=== PATIENT | male | born 1980 | race Caucasian/White ===

== ENCOUNTER 2022-03-27 23:26 | Inpatient (IN) | payer OTHER ==
[2022-03-28 00:06] VITALS: BMI 18.1
[2022-03-28] MEDS ORDERED: ONDANSETRON *ODT* 4 MG TABLET SL PRN (00:35)
[2022-03-28] MEDS ORDERED: IBUPROFEN 600 MG TABLET (FP) PO PRN (00:35)
[2022-03-28] MEDS ORDERED: DICYCLOMINE HCL 10 MG CAPSULE PO PRN (00:35)
[2022-03-28] MEDS ORDERED: LOPERAMIDE HCL 2 MG CAPSULE PO PRN (00:35)
[2022-03-28] MEDS ORDERED: BISMUTH SUBSALICYLATE 524 MG/30 ML PO PRN (00:35)
[2022-03-28] MEDS ORDERED: MAG HYDROX/AL HYDROX/SIMETH 30 ML UNIT-DOSE CUP PO PRN (00:35)
[2022-03-28] MEDS ORDERED: MAGNESIUM HYDROX 2400MG/30ML ORAL SUSPENSION 30 ML CUP PO PRN (00:35)
[2022-03-28] MEDS ORDERED: ACETAMINOPHEN 325 MG TABLET (FP) PO PRN ×3 (00:35→00:43)
[2022-03-28] MEDS ORDERED: POLYETHYLENE GLYCOL (HEALTHYLAX) 3350 17 GM PACKET PO PRN (00:35)
[2022-03-28] MEDS ORDERED: BENZOCAINE/MENTHOL (CHLORASEPTIC ) LOZENGE MM PRN (00:35)
[2022-03-28] MEDS ORDERED: guaiFENesin 200 MG/10 ML 10 ML UNIT-DOSE CUPS PO PRN (00:35)
[2022-03-28] MEDS ORDERED: P-EPHED 60MG/TRIPROLIDI 2.5MG TABLET PO PRN (00:35)
[2022-03-28] MEDS ORDERED: diazePAM 5 MG TABLET PO PRN (00:38)
[2022-03-28] MEDS ORDERED: diazePAM 5 MG TABLET PO ONE (00:38)
[2022-03-28] MEDS ORDERED: chlordiazePOXIDE HCL 25 MG CAPSULE PO PRN (00:47)
[2022-03-28] MEDS ORDERED: chlordiazePOXIDE HCL 25 MG CAPSULE PO ONE (00:47)
[2022-03-28] MEDS: levETIRAcetam 500 MG TABLET (FP) PO SCH ×3 (01:31→22:37)
[2022-03-28] MEDS ORDERED: chlordiazePOXIDE HCL 25 MG CAPSULE ONE ×3 (01:33→11:42)
[2022-03-28] MEDS ORDERED: diazePAM 5 MG TABLET PO SCH (05:00)
[2022-03-28] MEDS: chlordiazePOXIDE HCL 25 MG CAPSULE PO SCH ×4 (06:25→22:37)
[2022-03-28] MEDS: PRENATAL VITAMINS W/ FOLIC ACID TABLET (FP) PO SCH (11:00)
[2022-03-28] MEDS ORDERED: levETIRAcetam 500 MG TABLET (FP) PO ONE (12:00)
[2022-03-28] MEDS: LIDOCAINE 5% TOPICAL PATCH TP SCH (12:30)
[2022-03-28] MEDS: IBUPROFEN 400 MG TABLET (FP) PO PRN (17:37)
[2022-03-28] MEDS: hydrOXYzine PAMOATE 25 MG CAPSULE (FP) PO PRN (17:39)
[2022-03-28] MEDS: THIAMINE HCL 100 MG TABLET (FP) PO SCH (22:37)
[2022-03-28] MEDS: MELATONIN 5 MG TABLETS PO SCH (22:37)
[2022-03-28] MEDS: LIDOCAINE PATCH REMOVAL MC SCH (22:38)
[2022-03-28] MEDS: METHOCARBAMOL 500 MG TABLET PO PRN (22:39)
[2022-03-29] MEDS ORDERED: diazePAM 5 MG TABLET PO SCH (06:00)
[2022-03-29] MEDS: chlordiazePOXIDE HCL 25 MG CAPSULE PO SCH ×4 (06:23→22:14)
[2022-03-29] MEDS: PRENATAL VITAMINS W/ FOLIC ACID TABLET (FP) PO SCH (10:00)
[2022-03-29] MEDS: LIDOCAINE 5% TOPICAL PATCH TP SCH (10:00)
[2022-03-29] MEDS: levETIRAcetam 500 MG TABLET (FP) PO SCH ×2 (10:00→22:14)
[2022-03-29] MEDS: METHOCARBAMOL 500 MG TABLET PO PRN ×2 (10:03→18:51)
[2022-03-29] MEDS: hydrOXYzine PAMOATE 25 MG CAPSULE (FP) PO PRN (18:51)
[2022-03-29] MEDS: MELATONIN 5 MG TABLETS PO SCH (22:14)
[2022-03-29] MEDS: THIAMINE HCL 100 MG TABLET (FP) PO SCH (22:14)
[2022-03-29] MEDS: IBUPROFEN 400 MG TABLET (FP) PO PRN (22:15)
[2022-03-29] MEDS: LIDOCAINE PATCH REMOVAL MC SCH (22:18)
[2022-03-30] MEDS ORDERED: chlordiazePOXIDE HCL 10 MG CAPSULE PO PRN
[2022-03-30] MEDS: chlordiazePOXIDE HCL 10 MG CAPSULE PO SCH ×4 (05:33→22:36)
[2022-03-30] MEDS: ACETAMINOPHEN 325 MG TABLET (FP) PO PRN ×2 (05:34→22:34)
[2022-03-30] MEDS ORDERED: diazePAM 5 MG TABLET PO SCH (06:00)
[2022-03-30] MEDS: LIDOCAINE 5% TOPICAL PATCH TP SCH (10:19)
[2022-03-30] MEDS: PRENATAL VITAMINS W/ FOLIC ACID TABLET (FP) PO SCH (10:19)
[2022-03-30] MEDS: levETIRAcetam 500 MG TABLET (FP) PO SCH ×2 (10:19→22:31)
[2022-03-30] MEDS: METHOCARBAMOL 500 MG TABLET PO PRN (10:19)
[2022-03-30] MEDS: IBUPROFEN 400 MG TABLET (FP) PO PRN (17:02)
[2022-03-30] MEDS: MELATONIN 5 MG TABLETS PO SCH (22:30)
[2022-03-30] MEDS: THIAMINE HCL 100 MG TABLET (FP) PO SCH (22:30)
[2022-03-30] MEDS: LIDOCAINE PATCH REMOVAL MC SCH (22:33)
[2022-03-31] MEDS: METHOCARBAMOL 500 MG TABLET PO PRN ×3 (01:12→22:46)
[2022-03-31] MEDS: ACETAMINOPHEN 325 MG TABLET (FP) PO PRN (05:43)
[2022-03-31] MEDS: chlordiazePOXIDE HCL 10 MG CAPSULE PO SCH ×2 (05:47→17:49)
[2022-03-31] MEDS ORDERED: diazePAM 5 MG TABLET PO ONE (06:00)
[2022-03-31] MEDS ORDERED: IBUPROFEN 400 MG TABLET (FP) PO PRN (10:04)
[2022-03-31] MEDS: levETIRAcetam 500 MG TABLET (FP) PO SCH ×2 (10:30→22:46)
[2022-03-31] MEDS: LIDOCAINE 5% TOPICAL PATCH TP SCH (10:30)
[2022-03-31] MEDS: PRENATAL VITAMINS W/ FOLIC ACID TABLET (FP) PO SCH (10:31)
[2022-03-31] MEDS: NICOTINE 10 MG CARTRIDGE (INHALER) IH PRN ×2 (10:33→22:44)
[2022-03-31] MEDS: hydrOXYzine PAMOATE 25 MG CAPSULE (FP) PO PRN ×2 (10:35→22:46)
[2022-03-31] MEDS: MELATONIN 5 MG TABLETS PO SCH (22:46)
[2022-03-31] MEDS: THIAMINE HCL 100 MG TABLET (FP) PO SCH (22:46)
[2022-03-31] MEDS: LIDOCAINE PATCH REMOVAL MC SCH (22:47)
[2022-04-01] MEDS ORDERED: chlordiazePOXIDE HCL 10 MG CAPSULE PO ONE (05:00)
[2022-04-01] MEDS: METHOCARBAMOL 500 MG TABLET PO PRN (05:49)
[2022-04-01] MEDS: ACETAMINOPHEN 325 MG TABLET (FP) PO PRN (05:49)
[2022-04-01] MEDS: levETIRAcetam 500 MG TABLET (FP) PO SCH (10:09)
[2022-04-01] MEDS: LIDOCAINE 5% TOPICAL PATCH TP SCH (10:09)
[2022-04-01] MEDS: PRENATAL VITAMINS W/ FOLIC ACID TABLET (FP) PO SCH (10:10)
[2022-04-01 13:10] VITALS: BP 107/65; PULSE 105; RESP 20; TEMP 98.1
== END 2022-04-01 13:01 | disposition other institution (70) | DRG 775 ==
LOC: YASAS 23:26 → Y6N 03-28 10:53
PROVIDERS: ADMIT Allergy & Immunology; ATTEND Surgery
PROC: HZ2ZZZZ Detoxification Services for Substance Abuse Treatment (ICD-10-PCS; principal; 2022-03-28)
DX: F10.230 Alcohol dependence with withdrawal, uncomplicated (principal); F17.210 Nicotine dependence, cigarettes, uncomplicated; F10.282 Alcohol dependence with alcohol-induced sleep disorder; F10.24 Alcohol dependence with alcohol-induced mood disorder; F32.A Depression, unspecified; D69.6 Thrombocytopenia, unspecified; D64.9 Anemia, unspecified; Z62.810 Personal history of physical and sexual abuse in childhood; Z85.028 Personal history of other malignant neoplasm of stomach; Z90.3 Acquired absence of stomach [part of]; Z86.19 Personal history of other infectious and parasitic diseases; S22.39XD Fracture of one rib, unspecified side, subsequent encounter for fracture with routine healing; S62.616D Displaced fracture of proximal phalanx of right little finger, subsequent encounter for fracture with routine healing; Y04.0XXD Assault by unarmed brawl or fight, subsequent encounter
CPT/HCPCS: 36415; 70450-TC; 71250-TC; 72125-TC; 73130-TC-LT-FY; 73130-TC-RT-FY; 80053; 82140; 83690; 85025; 85610; 85730; 86780; 86850; 86900; 86901; C9803-CS; U0003; U0005

== ENCOUNTER 2022-04-01 13:12 | Inpatient (IN) | payer OTHER ==
[2022-04-01] MEDS ORDERED: MAGNESIUM HYDROX 2400MG/30ML ORAL SUSPENSION 30 ML CUP PO PRN (16:01)
[2022-04-01] MEDS ORDERED: BENZOCAINE/MENTHOL (CHLORASEPTIC ) LOZENGE MM PRN (16:01)
[2022-04-01] MEDS ORDERED: POLYETHYLENE GLYCOL (HEALTHYLAX) 3350 17 GM PACKET PO PRN (16:01)
[2022-04-01] MEDS ORDERED: MAG HYDROX/AL HYDROX/SIMETH 30 ML UNIT-DOSE CUP PO PRN (16:01)
[2022-04-01] MEDS ORDERED: NICOTINE 7 MG/24 HOURS TOPICAL PATCH TD PRN (16:01)
[2022-04-01] MEDS ORDERED: ACETAMINOPHEN 325 MG TABLET (FP) PO PRN (16:01)
[2022-04-01] MEDS ORDERED: NICOTINE POLACRILEX 2 MG GUM BUC PRN (16:01)
[2022-04-01] MEDS ORDERED: guaiFENesin 200 MG/10 ML 10 ML UNIT-DOSE CUPS PO PRN (16:01)
[2022-04-01] MEDS ORDERED: LOPERAMIDE HCL 2 MG CAPSULE PO PRN (16:01)
[2022-04-01] MEDS ORDERED: P-EPHED 60MG/TRIPROLIDI 2.5MG TABLET PO PRN (16:01)
[2022-04-01] MEDS: IBUPROFEN 400 MG TABLET (FP) PO PRN (16:54)
[2022-04-01] MEDS: NICOTINE 10 MG CARTRIDGE (INHALER) IH PRN (21:20)
[2022-04-01] MEDS: BACLOFEN 10 MG TABLET (FP) PO PRN (21:21)
[2022-04-01] MEDS: THIAMINE HCL 100 MG TABLET (FP) PO SCH (21:21)
[2022-04-01] MEDS: hydrOXYzine PAMOATE 25 MG CAPSULE (FP) PO PRN (21:21)
[2022-04-01] MEDS: levETIRAcetam 500 MG TABLET (FP) PO SCH (21:21)
[2022-04-01] MEDS: MELATONIN 5 MG TABLETS PO SCH (21:22)
[2022-04-02] MEDS: IBUPROFEN 400 MG TABLET (FP) PO PRN ×2 (06:22→13:51)
[2022-04-02] MEDS: NICOTINE 10 MG CARTRIDGE (INHALER) IH PRN (06:23)
[2022-04-02] MEDS: levETIRAcetam 500 MG TABLET (FP) PO SCH ×2 (09:48→21:15)
[2022-04-02] MEDS: PRENATAL VITAMINS W/ FOLIC ACID TABLET (FP) PO SCH (09:48)
[2022-04-02] MEDS: BACLOFEN 10 MG TABLET (FP) PO PRN ×2 (09:48→21:16)
[2022-04-02] MEDS: hydrOXYzine PAMOATE 25 MG CAPSULE (FP) PO PRN (09:48)
[2022-04-02 12:48] LABS: HIV INTERPRETATION NEGATIVE (NEGATIVE)
[2022-04-02] MEDS: LIDOCAINE 5% TOPICAL PATCH TP SCH (15:55)
[2022-04-02] MEDS: MELATONIN 5 MG TABLETS PO SCH (21:15)
[2022-04-02] MEDS: THIAMINE HCL 100 MG TABLET (FP) PO SCH (21:15)
[2022-04-02] MEDS: LIDOCAINE PATCH REMOVAL MC SCH (21:17)
[2022-04-03] MEDS: NICOTINE 10 MG CARTRIDGE (INHALER) IH PRN ×3 (06:27→21:20)
[2022-04-03] MEDS: LIDOCAINE 5% TOPICAL PATCH TP SCH (09:50)
[2022-04-03] MEDS: levETIRAcetam 500 MG TABLET (FP) PO SCH ×2 (09:50→21:18)
[2022-04-03] MEDS: PRENATAL VITAMINS W/ FOLIC ACID TABLET (FP) PO SCH (09:51)
[2022-04-03] MEDS: IBUPROFEN 400 MG TABLET (FP) PO PRN ×2 (09:52→21:19)
[2022-04-03] MEDS: HYDROCORTISONE 1% TOPICAL OINT 30 GM TUBE TP PRN (11:54)
[2022-04-03] MEDS: THIAMINE HCL 100 MG TABLET (FP) PO SCH (21:17)
[2022-04-03] MEDS: LIDOCAINE PATCH REMOVAL MC SCH (21:18)
[2022-04-03] MEDS: MELATONIN 5 MG TABLETS PO SCH (21:18)
[2022-04-04] MEDS: NICOTINE 10 MG CARTRIDGE (INHALER) IH PRN (06:33)
[2022-04-04] MEDS: IBUPROFEN 400 MG TABLET (FP) PO PRN (06:34)
[2022-04-04] MEDS: levETIRAcetam 500 MG TABLET (FP) PO SCH ×2 (10:16→22:58)
[2022-04-04] MEDS: LIDOCAINE 5% TOPICAL PATCH TP SCH (10:16)
[2022-04-04] MEDS: PRENATAL VITAMINS W/ FOLIC ACID TABLET (FP) PO SCH (10:16)
[2022-04-04] MEDS: HYDROCORTISONE 1% TOPICAL OINT 30 GM TUBE TP PRN (10:18)
[2022-04-04 11:12] LABS: INR 1.03 (0.83-1.09); PROTHROMBIN TIME (PATIENT) 11.8 SEC (9.7-13.0)
[2022-04-04 11:13] LABS: EOS % 1.1 % (0-4.5); HEMATOCRIT 33.8 % (35.4-49); LYMPH % 28.3 % (8-40); MCH 33.7 pg (25.7-33.7); MCHC 32.6 g/dl (32.0-35.9); MEAN CELL VOLUME 103.4 fl (80-96); MEAN PLT VOLUME 7.2 fl (7.5-11.1); NEUT % 49.6 % (42.8-82.8); PLATELET COUNT 249 10^3/uL (134-434); RBC 3.27 M/mm3 (4.00-5.60); RDW 15.3 % (11.9-15.9); WHITE BLOOD COUNT 4.8 K/mm3 (4.0-10.0)
[2022-04-04 11:15] LABS: ALBUMIN 2.8 g/dl (3.4-5.0); CALCIUM 8.8 mg/dL (8.5-10.1)
[2022-04-04 11:18] LABS: CREATININE 0.6 mg/dL (0.55-1.3)
[2022-04-04 11:20] LABS: BILIRUBIN,TOTAL 0.4 mg/dL (0.2-1); TOT PROT 5.9 g/dl (6.4-8.2)
[2022-04-04 12:52] LABS: HIV INTERPRETATION NEGATIVE (NEGATIVE)
[2022-04-04 14:27] VITALS: BP 100/72; PULSE 111; RESP 18; TEMP 97.8
[2022-04-04] MEDS: MELATONIN 5 MG TABLETS PO SCH (22:58)
[2022-04-04] MEDS: LIDOCAINE PATCH REMOVAL MC SCH (22:58)
[2022-04-04] MEDS: THIAMINE HCL 100 MG TABLET (FP) PO SCH (22:59)
== END 2022-04-04 23:00 | disposition short-term general hospital (02) | DRG 772 ==
LOC: YASAS 13:12 → Y3E 13:14
PROVIDERS: ADMIT Allergy & Immunology; ATTEND Psychiatry & Neurology Pain Medicine
PROC: HZ42ZZZ Group Counseling for Substance Abuse Treatment, Cognitive-Behavioral (ICD-10-PCS; principal; 2022-04-01)
DX: F10.20 Alcohol dependence, uncomplicated (principal); F17.210 Nicotine dependence, cigarettes, uncomplicated; F10.282 Alcohol dependence with alcohol-induced sleep disorder; F10.24 Alcohol dependence with alcohol-induced mood disorder; F32.A Depression, unspecified; D50.0 Iron deficiency anemia secondary to blood loss (chronic); G40.909 Epilepsy, unspecified, not intractable, without status epilepticus; K62.5 Hemorrhage of anus and rectum; R60.0 Localized edema; Z85.028 Personal history of other malignant neoplasm of stomach; Z86.19 Personal history of other infectious and parasitic diseases; Z90.3 Acquired absence of stomach [part of]
CPT/HCPCS: 36415; 80053; 82140; 82607; 82728; 82746; 84466; 85025; 85610; 86803; 87389; 87491; 87591; 87661; J0475

== ENCOUNTER 2022-04-04 14:38 | Inpatient (IN) | payer OTHER ==
[2022-04-04 17:12] LABS: BASO % 1.3 % (0-2.0); EOS % 1.1 % (0-4.5); HEMATOCRIT 30.3 % (35.4-49); HEMOGLOBIN 9.6 GM/dL (11.7-16.9); LYMPH % 23.3 % (8-40); MCH 32.9 pg (25.7-33.7); MCHC 31.8 g/dl (32.0-35.9); MEAN CELL VOLUME 103.6 fl (80-96); MEAN PLT VOLUME 7.2 fl (7.5-11.1); MONO % 20.4 % (3.8-10.2); NEUT % 53.9 % (42.8-82.8); PLATELET COUNT 234 10^3/uL (134-434); RBC 2.92 M/mm3 (4.00-5.60); RDW 15.4 % (11.9-15.9); WHITE BLOOD COUNT 4.3 K/mm3 (4.0-10.0)
[2022-04-04 17:24] LABS: INR 1.05 (0.83-1.09); PROTHROMBIN TIME (PATIENT) 12.1 SEC (9.7-13.0)
[2022-04-04 17:26] LABS: ACTIVATED PTT 31.7 SECONDS (25.2-36.5)
[2022-04-04] MEDS ORDERED: PANTOPRAZOLE SODIUM 40 MG VIAL IVPUSH ONE ×2 (17:32→17:40)
[2022-04-04 17:36] LABS: CALCIUM 8.4 mg/dL (8.5-10.1)
[2022-04-04 17:37] LABS: ALBUMIN 2.8 g/dl (3.4-5.0); BLOOD UREA NITROGEN 9.2 mg/dL (7-18); MAGNESIUM 2.2 mg/dL (1.8-2.4)
[2022-04-04 17:40] LABS: CREATININE 0.7 mg/dL (0.55-1.3)
[2022-04-04 17:42] LABS: BILIRUBIN,TOTAL 0.3 mg/dL (0.2-1); TOT PROT 5.6 g/dl (6.4-8.2)
[2022-04-04 18:06] LABS: ANISOCYTOSIS 1+; MACROCYTOSIS 0
[2022-04-04 18:13] LABS: PLATELET ESTIMATE ADEQUATE
[2022-04-04] MEDS ORDERED: PANTOPRAZOLE SODIUM 40 MG VIAL ONE (20:54)
[2022-04-05] MEDS ORDERED: SODIUM CHLORIDE 1,000 ML IV SCH (00:45)
[2022-04-05 06:10] VITALS: RESP 18
[2022-04-05 09:44] LABS: HEMATOCRIT 30.3 % (35.4-49); MCH 33.6 pg (25.7-33.7); MEAN CELL VOLUME 101.9 fl (80-96); MEAN PLT VOLUME 7.2 fl (7.5-11.1); PLATELET COUNT 240 10^3/uL (134-434); RBC 2.98 M/mm3 (4.00-5.60); RDW 15.1 % (11.9-15.9); WHITE BLOOD COUNT 4.5 K/mm3 (4.0-10.0)
[2022-04-05] MEDS ORDERED: levETIRAcetam 500 MG TABLET (FP) PO SCH (10:00)
[2022-04-05] MEDS ORDERED: FLUoxetine HCL 20 MG CAPSULE PO SCH ×2 (10:00)
[2022-04-05] MEDS ORDERED: PANTOPRAZOLE SODIUM 40 MG VIAL IVPUSH SCH (10:00)
[2022-04-05 10:09] LABS: ALBUMIN 2.5 g/dl (3.4-5.0)
[2022-04-05 10:10] LABS: CALCIUM 8.2 mg/dL (8.5-10.1); MAGNESIUM 2.2 mg/dL (1.8-2.4)
[2022-04-05 10:12] LABS: CREATININE 0.6 mg/dL (0.55-1.3); PHOSPHOROUS 5.4 mg/dL (2.5-4.9)
[2022-04-05 10:14] LABS: BILIRUBIN,TOTAL 0.4 mg/dL (0.2-1); TOT PROT 5.3 g/dl (6.4-8.2)
[2022-04-05 10:29] LABS: ANISOCYTOSIS 1+; MACROCYTOSIS 2+; PLATELET ESTIMATE INCREASED
[2022-04-05] MEDS ORDERED: CYANOCOBALAMIN (VITAMIN B-12) 1000 MCG/1 ML VIAL IM ONE (10:40)
[2022-04-05] MEDS: FOLIC ACID 1 MG TABLET (FP) PO SCH (12:11)
[2022-04-05] MEDS: MULTIVITAMINS (DAILY MVI) TABLET (FP) PO SCH (12:11)
[2022-04-05] MEDS: levETIRAcetam 500 MG/5 ML INJECTION VIAL IVPB SCH ×2 (12:11→22:22)
[2022-04-05] MEDS: THIAMINE HCL 100 MG TABLET (FP) PO SCH (12:11)
[2022-04-05] MEDS: SERTRALINE HCL 50 MG TABLET (FP) PO SCH (12:11)
[2022-04-05] MEDS: POLYETHYLENE GLYCOL (HEALTHYLAX) 3350 17 GM PACKET PO SCH (12:12)
[2022-04-05] MEDS: LORazepam 2 MG/ML SDV VIAL IVPUSH PRN ×2 (12:28→18:34)
[2022-04-05] MEDS: NICOTINE 7 MG/24 HOURS TOPICAL PATCH TD SCH (14:53)
[2022-04-06] MEDS ORDERED: CYANOCOBALAMIN (VITAMIN B-12) 1000 MCG/1 ML VIAL IM SCH (10:15)
[2022-04-06] MEDS: SERTRALINE HCL 50 MG TABLET (FP) PO SCH (10:23)
[2022-04-06] MEDS: MULTIVITAMINS (DAILY MVI) TABLET (FP) PO SCH (10:23)
[2022-04-06] MEDS: POLYETHYLENE GLYCOL (HEALTHYLAX) 3350 17 GM PACKET PO SCH (10:23)
[2022-04-06] MEDS: levETIRAcetam 500 MG/5 ML INJECTION VIAL IVPB SCH (10:23)
[2022-04-06] MEDS: THIAMINE HCL 100 MG TABLET (FP) PO SCH (10:23)
[2022-04-06] MEDS: NICOTINE 7 MG/24 HOURS TOPICAL PATCH TD SCH (10:23)
[2022-04-06] MEDS: FOLIC ACID 1 MG TABLET (FP) PO SCH (10:23)
[2022-04-06 10:48] LABS: HEMATOCRIT 34.3 % (35.4-49); HEMOGLOBIN 11.1 GM/dL (11.7-16.9); MCHC 32.4 g/dl (32.0-35.9); MEAN PLT VOLUME 7.2 fl (7.5-11.1); PLATELET COUNT 321 10^3/uL (134-434); RBC 3.36 M/mm3 (4.00-5.60); RDW 14.8 % (11.9-15.9); WHITE BLOOD COUNT 4.7 K/mm3 (4.0-10.0)
[2022-04-06] MEDS ORDERED: oxyCODONE HCL 5 MG TABLET PO ONE (10:57)
[2022-04-06 11:18] LABS: CALCIUM 9.1 mg/dL (8.5-10.1)
[2022-04-06 11:19] LABS: BLOOD UREA NITROGEN 9.2 mg/dL (7-18)
[2022-04-06 11:21] LABS: CREATININE 0.7 mg/dL (0.55-1.3)
[2022-04-06 11:22] LABS: BILIRUBIN,TOTAL 0.4 mg/dL (0.2-1); TOT PROT 6.2 g/dl (6.4-8.2)
[2022-04-06 11:38] VITALS: BP 93/59; PULSE 86; TEMP 98.6
[2022-04-06 11:50] LABS: ANISOCYTOSIS 0; HELMET CELLS 0; HOWELL-JOLLY BODIES 0; MACROCYTOSIS 0; OVALOCYTE 0; ROULEAU 0; SICKELED CELLS 0; TARGET CELLS 0; TEAR DROP CELLS 0; TOXIC GRANULATION 0
[2022-04-06] MEDS ORDERED: LIDOCAINE 5% TOPICAL PATCH TP SCH (13:00)
[2022-04-06] MEDS ORDERED: LIDOCAINE PATCH REMOVAL MC SCH (22:00)
[2022-04-08] MEDS ORDERED: SODIUM PHOSPHATE/NA BIPHOS 133 ML ENEMA RC ONE (07:00)
== END 2022-04-06 14:25 | disposition home or self-care (01) | DRG 254 ==
LOC: JER 14:38 → JERBED 20:25 → J5S 04-05 06:53
PROVIDERS: ADMIT Internal Medicine; ATTEND Internal Medicine
DX: K64.4 Residual hemorrhoidal skin tags (principal); D64.9 Anemia, unspecified; G40.909 Epilepsy, unspecified, not intractable, without status epilepticus; K62.5 Hemorrhage of anus and rectum; K59.09 Other constipation; F32.A Depression, unspecified; F41.9 Anxiety disorder, unspecified; F17.210 Nicotine dependence, cigarettes, uncomplicated; C16.9 Malignant neoplasm of stomach, unspecified; M87.852 Other osteonecrosis, left femur; M87.851 Other osteonecrosis, right femur; F10.20 Alcohol dependence, uncomplicated
CPT/HCPCS: 0241U-QW; 36415; 71045-TC-FY; 74174-TC; 80053; 82272; 83605; 83735; 84100; 85025; 85610; 85730; 86850; 86900; 86901; 93005; 93010; 99285-25

== ENCOUNTER 2022-04-06 16:26 | Inpatient (IN) | payer OTHER ==
[2022-04-06 17:14] VITALS: BMI 20.5
[2022-04-06] MEDS ORDERED: POLYETHYLENE GLYCOL (HEALTHYLAX) 3350 17 GM PACKET PO PRN (23:29)
[2022-04-06] MEDS ORDERED: METHOCARBAMOL 500 MG TABLET PO PRN (23:29)
[2022-04-06] MEDS ORDERED: DICYCLOMINE HCL 10 MG CAPSULE PO PRN (23:29)
[2022-04-06] MEDS ORDERED: BENZOCAINE/MENTHOL (CHLORASEPTIC ) LOZENGE MM PRN (23:29)
[2022-04-06] MEDS ORDERED: MAGNESIUM HYDROX 2400MG/30ML ORAL SUSPENSION 30 ML CUP PO PRN (23:29)
[2022-04-06] MEDS ORDERED: BISMUTH SUBSALICYLATE 524 MG/30 ML PO PRN (23:29)
[2022-04-06] MEDS ORDERED: MAG HYDROX/AL HYDROX/SIMETH 30 ML UNIT-DOSE CUP PO PRN (23:29)
[2022-04-06] MEDS ORDERED: NALOXONE HCL (KLOXXADO) 8 MG SPRAY NS PRN (23:29)
[2022-04-06] MEDS ORDERED: NICOTINE POLACRILEX 2 MG GUM BUC PRN (23:29)
[2022-04-06] MEDS ORDERED: IBUPROFEN 400 MG TABLET (FP) PO PRN (23:29)
[2022-04-06] MEDS ORDERED: IBUPROFEN 600 MG TABLET (FP) PO PRN (23:29)
[2022-04-06] MEDS ORDERED: LOPERAMIDE HCL 2 MG CAPSULE PO PRN (23:29)
[2022-04-06] MEDS ORDERED: ONDANSETRON *ODT* 4 MG TABLET SL PRN (23:29)
[2022-04-07 09:37] VITALS: BP 114/72; PULSE 107; RESP 20; TEMP 97.4
[2022-04-07] MEDS ORDERED: NICOTINE 14 MG/24 HOURS TOPICAL PATCH TD SCH (10:00)
[2022-04-07] MEDS ORDERED: CYANOCOBALAMIN 1,000 MCG TABLET (FP) PO SCH (10:00)
[2022-04-07] MEDS ORDERED: PRENATAL VITAMINS W/ FOLIC ACID TABLET (FP) PO SCH (10:00)
[2022-04-07] MEDS ORDERED: levETIRAcetam 500 MG TABLET (FP) PO SCH (10:00)
[2022-04-07] MEDS ORDERED: MELATONIN 5 MG TABLETS PO SCH (22:00)
[2022-04-07] MEDS ORDERED: THIAMINE HCL 100 MG TABLET (FP) PO SCH (22:00)
== END 2022-04-07 11:40 | disposition home or self-care (01) | DRG 775 ==
LOC: YASAS 16:26 → Y6N 23:29
PROVIDERS: ADMIT Allergy & Immunology; ATTEND Surgery
PROC: HZ2ZZZZ Detoxification Services for Substance Abuse Treatment (ICD-10-PCS; principal; 2022-04-06)
DX: F10.230 Alcohol dependence with withdrawal, uncomplicated (principal); F17.210 Nicotine dependence, cigarettes, uncomplicated; F32.A Depression, unspecified; B19.10 Unspecified viral hepatitis B without hepatic coma; K64.8 Other hemorrhoids; Z85.00 Personal history of malignant neoplasm of unspecified digestive organ; Z86.69 Personal history of other diseases of the nervous system and sense organs